=== PATIENT | male | born 1980 | race African-American/Black ===

== ENCOUNTER 2017-12-08 09:02 | Emergency (ER) | payer OTHER ==
[2017-12-08] MEDS ORDERED: diazePAM 2 MG TABLET PO ONE (09:03)
[2017-12-08] MEDS ORDERED: IBUPROFEN 600 MG TABLET (FP) PO ONE ×2 (09:03→09:43)
--- NOTE | 2017-12-08 09:03 | PDOC ---
History of Present Illness - General Chief Complaint: Pain, Acute Stated Complaint: BACK PAIN Time Seen by Provider: 12/08/17 09:03 History Source: Patient Exam Limitations: No Limitations - History of Present Illness Initial Comments: 12/08/17 09:14 Mr. Santo is a 37 yo M with no significant past medical history who presents to the ER with a complaint of back pain Pt states he has a history of chronic back pain His pain worsened last evening Pain is described as an ache, intermittently sharp Rated 7/10, no radiation No fevers, chills cough No shortness of breath No chest pain No trauma, no heavy lifting No prior episodes like this No recent travel, no recent surgery, no cancer dx PMH: denies PSH: denies Meds: denies ALL: NKDA Social: denies drug or cigarette use FH: non contributory GENERAL/CONSTITUTIONAL: No: fever, chills, weakness, loss of appetite. HEAD, EYES, EARS, NOSE AND THROAT: No: change in vision, ear pain, discharge, sore throat, throat swelling. CARDIOVASCULAR: No: chest pain, lightheadedness RESPIRATORY: No: cough, shortness of breath GASTROINTESTINAL: No: nausea, vomiting, diarrhea, abdominal pain GENITOURINARY: No: dysuria, hematuria, frequency, urgency, flank pain. MUSCULOSKELETAL: Yes: right thoracic back pain No: midline back pain, neck pain , joint pain SKIN : No: lesions, pallor, rash or easy bruising. NEUROLOGIC: No: headache, vertigo, paresthesias, weakness ENDOCRINE: No: unexplained weight gain or loss HEMATOLOGIC/LYMPHATIC: No: anemia, easy bleeding, swelling nodes. GENERAL: The patient is in no acute distress. HEAD: Normal EYES: PERRLA, EOMI, sclera anicteric, conjunctiva clear. ENT: Ears normal, nares patent, oropharynx clear without exudates. Moist mucous membranes. NECK: Normal range of motion, supple without midline tenderness LUNGS: Breath sounds equal, clear to auscultation bilaterally. No wheezes, and no crackles. HEART:Regular rate and rhythm, normal S1 and S2 without murmur, rub or gallop. ABDOMEN: Soft, nontender, normoactive bowel sounds. No guarding, no rebound. No masses palpable. EXTREMITIES: Normal range of motion, no edema. NEUROLOGICAL: Cranial nerves II through XII grossly intact. Normal speech. No focal neurological deficits. MUSCULOSKELETAL: Right thoracic back tenderness to palpation, no swelling SKIN: no rash noted 12/08/17 16:47 Past History - Past Medical History Allergies/Adverse Reactions: Allergies Allergy/AdvReac Type Severity Reaction Status Date / Time No Known Allergies Allergy Verified 12/08/17 09:03 Home Medications: Ambulatory Orders Lidocaine 5% Patch [Lidoderm Patch -] 1 patch TP DAILY PRN #30 patch 12/08/17 Methocarbamol [Robaxin -] 500 mg PO TID PRN #21 tablet 12/08/17 Naproxen [Naprosyn -] 500 mg PO BID PRN #14 tablet 12/08/17 - Suicide/Smoking/Psychosocial Hx Smoking History: Never smoked Have you smoked in the past 12 months: No Hx Alcohol Use: No Drug/Substance Use Hx: Yes (SOCIAL) Substance Use Type: Alcohol Medical Decision Making - Medical Decision Making 12/08/17 09:19 Pt presenting with right thoracic back pain DD: Musculoskeletal pain, pneumonia, pleural effusion, pneumothorax, PE unlikely given stable vital signs Pain is thoracic, I do not believe this to be renal colic Will do: Xrays Motrin UA (R/o hematuria) 12/08/17 10:42 Laboratory Tests 12/08/17 09:17 Urine Blood Negative Urine Nitrite Negative Ur Leukocyte Esterase Negative Will discharge to home Will ask pt to follow up with PMD Motrin/robaxin/lidoderm for pain Clinical Impression: musculoskeletal pain, initial presentation 12/08/17 16:46 *DC/Admit/Observation/Transfer Diagnosis at time of Disposition: Musculoskeletal back pain - Discharge Dispostion Disposition: HOME Condition at time of disposition: Stable Decision to Admit order: No - Prescriptions Prescriptions: Lidocaine 5% Patch [Lidoderm Patch -] 1 patch TP DAILY PRN #30 patch PRN Reason: Pain Methocarbamol [Robaxin -] 500 mg PO TID PRN #21 tablet PRN Reason: Pain Naproxen [Naprosyn -] 500 mg PO BID PRN #14 tablet PRN Reason: Pain - Referrals - Patient Instructions Printed Discharge Instructions: DI for Musculoskeletal Pain Additional Instructions: Mr. Santo, Thank you for coming in to the ER today Please take medications as prescribed Please monitor for new symptoms You can return to the ER for any other concerns or complaints Monitor for skin changes/rash. If you notice this, please return to the ER Please follow up with your primary care physician within 1 week - Post Discharge Activity Forms/Work/School Notes: Back to Work
[2017-12-08 09:09] VITALS: BP 135/82; PULSE 60; TEMP 98; BMI 21.1
[2017-12-08] MEDS ORDERED: CYCLOBENZAPRINE HCL 10 MG TABLET (FP) PO ONE (09:21)
[2017-12-08 09:35] LABS: PH,URINE 6.5 (4.5-8); URINE APPEARANCE Clear; URINE BILIRUBIN Negative (NEGATIVE); URINE GLUCOSE (UA) Negative (NEGATIVE); URINE KETONE Trace (NEGATIVE); URINE LEUK ESTERASE Negative (NEGATIVE); URINE NITRITE Negative (NEGATIVE)
[2017-12-08 09:36] LABS: URINE COLOR AMBER; URINE PROTEIN 1+ (NEGATIVE)
[2017-12-08 10:21] LABS: URINE WBC 0-3 (0-2)
[2017-12-08 10:22] LABS: URINE MUCUS FEW
== END 2017-12-08 11:19 | disposition home or self-care (01) ==
LOC: FER 09:02
DX: M54.6 Pain in thoracic spine (principal); G89.29 Other chronic pain
CPT/HCPCS: 71046-TC-FY; 71101-TC-FY; 81003; 81015; 99282-25

== ENCOUNTER 2019-06-19 09:01 | Emergency (ER) | payer OTHER ==
[2019-06-19] MEDS ORDERED: IBUPROFEN 600 MG TABLET (FP) PO ONE ×2 (09:04→09:31)
--- NOTE | 2019-06-19 09:11 | PDOC ---
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 Pt denies pmhx. Pt denies pshx. Pt denies allergies. Pt denies taking any meds at home. Noticed the pain last night after work and after moping. Pt denies swelling. Denies bites. Denies trauma. Pt with pain along the 2nd metacarpal. Pt with wrist pain on the L with flexion and extension. No forearm or elbow pain. No f/c. No redness. No warmth. No limited ROM. No prior injuries. Pt is RHD. Pmhx: denies Pshx: denies All: NKDA Meds: denies social: occasional tobacco Past History - Past Medical History Allergies/Adverse Reactions: Allergies Allergy/AdvReac Type Severity Reaction Status Date / Time No Known Allergies Allergy Verified 06/19/19 09:15 Home Medications: Ambulatory Orders NK [No Known Home Medication] 06/19/19 CVA: No COPD: No - Psycho Social/Smoking Cessation Hx Smoking History: Never smoked Have you smoked in the past 12 months: No Hx Alcohol Use: No Drug/Substance Use Hx: Yes (SOCIAL) Substance Use Type: Alcohol Review of Systems - Review of Systems Able to Perform ROS?: Yes Is the patient limited Chinese proficient: No Constitutional: No: Chills, Fever HEENTM: No: Nose Congestion, Throat Swelling Respiratory: No: Cough, Shortness of Breath Cardiac (ROS): No: Chest Pain, Irregular Heart Rate ABD/GI: No: Diarrhea, Nausea, Vomiting, Abdominal cramping : No: Burning, Dysuria Musculoskeletal: Yes: Joint Pain (L wrist and hand pain) Integumentary: No: Erythema, Rash Neurological: No: Headache, Numbness, Paresthesia, Tingling, Weakness All Other Systems: Reviewed and Negative *Physical Exam - Vital Signs 06/19/19 09:47 Selected Entries 06/19/19 09:02 Temperature 98.1 F Pulse Rate 58 L Respiratory 20 Rate Blood Pressure 124/90 Blood Pressure 101 Mean O2 Sat by Pulse 100 Oximetry (%) Weight 72.575 kg - Physical Exam General Appearance: Yes: Nourished, Appropriately Dressed. No: Apparent Distress HEENT: positive: EOMI, Normal Voice Neck: positive: Supple Respiratory/Chest: positive: Lungs Clear, Normal Breath Sounds. negative: Respiratory Distress Cardiovascular: positive: Regular Rhythm, Regular Rate, S1, S2 Gastrointestinal/Abdominal: positive: Soft. negative: Guarding, Rebound, Tenderness Musculoskeletal: positive: Normal Inspection, Other (L hand pain along the 2nd metacarpal and L wrist ttp along the radial aspect of the wrist, worse with palpation and with full flexion/extension, no pain with supination/pronation of the forearm, no elbow pain, no swelling, no warmth, no trauma, no rash) Extremity: positive: Normal Capillary Refill, Normal Inspection, Other (pulses intact, pain with extremes of ROM). 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 -no redness, swelling -no trauma -will send for xray -motrin -will monitor and reassess 06/19/19 09:46 no acute findings on xray- pending official read 06/19/19 10:03 no fx or acute findings on xray per rads pt stable for dc to home ice 20 min on and 20 min off discussed plan and follow up with ortho answered all questions will give work note to rest the wrist Discharge - Discharge Information Problems reviewed: Yes Clinical Impression/Diagnosis: Wrist pain Condition: Stable Disposition: HOME - Admission No - Follow up/Referral Referrals: Leonidas Bazan MD [Staff Physician] - Eduardo Tiwari MD [Staff Physician] - Patrick Pillai DO [Staff Physician] - - Patient Discharge Instructions Patient Printed Discharge Instructions: DI for Wrist Pain Additional Instructions: Please take ibuprofen or tylenol as needed for pain. Please apply ice to the wrist - 20 min on and 20 min off. Please rest the wrist for the next few days. Please follow up with the orthopedic surgeon if the pain continues. Please return to the ED with any further concerns or complaints. - Post Discharge Activity Work/Back to School Note: Back to Work
[2019-06-19 09:18] VITALS: BMI 21.1
[2019-06-19 09:47] VITALS: BP 124/90; PULSE 58; TEMP 98.1
== END 2019-06-19 10:19 | disposition home or self-care (01) ==
LOC: FER 09:01
DX: M25.532 Pain in left wrist (principal)
CPT/HCPCS: 73110-TC-LT-FY; 73130-TC-LT-FY; 99282-25

== ENCOUNTER 2020-09-26 09:22 | Emergency (ER) | payer OTHER ==
[2020-09-26 09:33] VITALS: BP 125/92; PULSE 62; TEMP 98; BMI 20.9
[2020-09-26] MEDS ORDERED: EMTRICITABINE 200MG/TENOFOVIR 300MG PO ONE (09:45)
[2020-09-26] MEDS ORDERED: TETANUS AND DIPHTHERIA TOXOID 0.5 ML DISP.SYRIN IM ONE ×2 (09:45→10:32)
[2020-09-26] MEDS ORDERED: RALTEGRAVIR POTASSIUM 400 MG TAB PO ONE (09:45)
[2020-09-26] MEDS ORDERED: HEPATITIS B IMMUNE GLOBULIN 5 ML VIAL IM ONE (09:57)
[2020-09-26] MEDS ORDERED: HIV POST EXPOSURE PROPHYLAXIS KIT PO ONE (10:31)
[2020-09-26 10:42] LABS: HEMATOCRIT 44.2 % (35.4-49); HEMOGLOBIN 15.1 GM/dl (11.7-16.9); MCH 32.1 pg (25.7-33.7); MCHC 34.1 g/dl (32.0-35.9); MEAN CELL VOLUME 94.3 fl (80-96); MEAN PLT VOLUME 9.7 fl (7.5-11.1); PLATELET COUNT 122 K/MM3 (134-434); RBC 4.69 M/mm3 (4.00-5.60); RDW 12.3 % (11.9-15.9); WHITE BLOOD COUNT 3.8 K/mm3 (4.0-10.8)
[2020-09-26 10:46] LABS: ADD RBC MORPHOLOGY YES
[2020-09-26 10:56] LABS: ALBUMIN 4.7 g/dl (3.4-5.0); BILIRUBIN,TOTAL 0.8 mg/dl (0.2-1); CALCIUM 9.3 mg/dl (8.5-10); CREATININE 0.8 mg/dl (0.55-1.3); PHOSPHOROUS 3.1 mg/dl (2.5-4.9); POTASSIUM 4.2 mmol/L (3.5-5.1); TOT PROT 7.1 g/dl (6.4-8.2); URIC ACID 4.7 mg/dl (2.6-7.2)
[2020-09-26 11:50] LABS: PLATELET ESTIMATE ADEQUATE
[2020-09-26 13:08] LABS: HIV INTERPRETATION NEGATIVE (NEGATIVE)
== END 2020-09-26 10:55 | disposition home or self-care (01) ==
LOC: FER 09:22
PROC: 3E0234Z Introduction of Serum, Toxoid and Vaccine into Muscle, Percutaneous Approach (ICD-10-PCS; principal; 2020-09-26)
DX: S61.231A Puncture wound without foreign body of left index finger without damage to nail, initial encounter (principal); W46.1XXA Contact with contaminated hypodermic needle, initial encounter
CPT/HCPCS: 36415; 80053; 82465; 82977; 83615; 84100; 84478; 84550; 85025; 86317; 86704; 86706; 86803; 87340; 87389; 99283-25

== ENCOUNTER 2022-04-11 19:32 | Emergency (ER) | payer OTHER ==
[2022-04-11] MEDS ORDERED: FAMOTIDINE 20 MG/50 ML IVPB 50 ML IVPB ONE (19:47)
[2022-04-11] MEDS ORDERED: DEXAMETHASONE LIQUID 0.5 MG/5 ML PO ONE (19:47)
[2022-04-11 19:48] VITALS: BP 141/91; PULSE 87; RESP 16; TEMP 98; BMI 19.2
[2022-04-11] MEDS ORDERED: DEXAMETHASONE SOD PHOSPHATE 10 MG/1 ML VIAL ONE (19:48)
[2022-04-11] MEDS ORDERED: FAMOTIDINE 20 MG TABLET PO ONE (19:51)
[2022-04-11] MEDS ORDERED: FAMOTIDINE 20 MG TABLET ONE (19:51)
== END 2022-04-11 19:55 | disposition home or self-care (01) ==
LOC: FER 19:32
DX: L50.9 Urticaria, unspecified (principal)
CPT/HCPCS: 99283-25

== ENCOUNTER 2022-04-13 09:14 | Emergency (ER) | payer OTHER ==
[2022-04-13 09:33] VITALS: BP 137/93; PULSE 73; RESP 20; TEMP 99.8; BMI 20.3
[2022-04-13] MEDS ORDERED: FAMOTIDINE 20 MG TABLET PO ONE (09:42)
[2022-04-13] MEDS ORDERED: MAG HYDROX/AL HYDROX/SIMETH 30 ML UNIT-DOSE CUP PO ONE (09:42)
[2022-04-13] MEDS ORDERED: MAG HYDROX/AL HYDROX/SIMETH 30 ML UNIT-DOSE CUP ONE (09:44)
[2022-04-13] MEDS ORDERED: FAMOTIDINE 20 MG TABLET ONE (09:44)
== END 2022-04-13 10:37 | disposition home or self-care (01) ==
LOC: FER 09:14
DX: K21.9 Gastro-esophageal reflux disease without esophagitis (principal)
CPT/HCPCS: 87651; 93005; 99283-25

== ENCOUNTER 2022-04-15 14:19 | Emergency (ER) | payer OTHER ==
[2022-04-15 14:36] VITALS: BP 117/79; PULSE 99; RESP 19; TEMP 98.3; BMI 19.6
[2022-04-15] MEDS ORDERED: SODIUM CHLORIDE 1,000 ML IV STA (15:12)
[2022-04-15] MEDS ORDERED: FAMOTIDINE 20 MG/50 ML IVPB 20 MG/50 ML MG IVPB ONE ×2 (15:12→15:38)
== END 2022-04-15 17:10 | disposition home or self-care (01) ==
LOC: JERFT 14:19
PROC: 3E033GC Introduction of Other Therapeutic Substance into Peripheral Vein, Percutaneous Approach (ICD-10-PCS; principal; 2022-04-15)
DX: T78.40XA Allergy, unspecified, initial encounter (principal)
CPT/HCPCS: 99284-25

== ENCOUNTER 2022-06-26 16:22 | Emergency (ER) | payer OTHER ==
[2022-06-26 16:37] VITALS: BP 138/95; PULSE 79; RESP 16; TEMP 98.9; BMI 20.3
[2022-06-26] MEDS ORDERED: IBUPROFEN 600 MG TABLET (FP) PO ONE ×2 (16:43→16:46)
== END 2022-06-26 17:40 | disposition home or self-care (01) ==
LOC: FER 16:22
DX: S29.012A Strain of muscle and tendon of back wall of thorax, initial encounter (principal); S20.219A Contusion of unspecified front wall of thorax, initial encounter; V49.40XA Driver injured in collision with unspecified motor vehicles in traffic accident, initial encounter
CPT/HCPCS: 71046-TC-FY; 72070-TC-FY; 93005; 99284-25

== ENCOUNTER 2023-04-02 06:10 | Day surgery (SDC) | payer OTHER ==
[2023-03-30 11:27] VITALS: BMI 19.9
[2023-04-02] MEDS ORDERED: TRIAMCINOLONE ACET 40MG/1ML VIAL ONE (07:19)
[2023-04-02] MEDS ORDERED: LIDOCAINE HCL 2% (20ML MULTI-DOSE VIAL) ONE (07:19)
[2023-04-02] MEDS ORDERED: BUPIVACAINE HCL/PF 0.5% (5MG/ML) 10 ML VIAL ONE (07:19)
[2023-04-02] MEDS ORDERED: PROPOFOL 40 ML ONE (07:27)
[2023-04-02] MEDS ORDERED: LIDOCAINE HCL/PF 2% SDV 5ML VIAL ONE (07:28)
[2023-04-02] MEDS ORDERED: MIDAZOLAM HCL 2 MG/2 ML SINGLE DOSE VIAL ONE (07:28)
[2023-04-02] MEDS ORDERED: KETOROLAC TROMETHAMINE 30 MG/1 ML VIAL ONE (07:28)
[2023-04-02] MEDS ORDERED: ceFAZolin SODIUM 1 GM VIAL ONE (07:43)
[2023-04-02] MEDS ORDERED: ONDANSETRON 4 MG/2 ML VIAL IVPUSH PRN (09:21)
[2023-04-02] MEDS ORDERED: PROMETHAZINE HCL 25 MG/1 ML VIAL IVPB PRN (09:21)
[2023-04-02] MEDS ORDERED: oxyCODONE HCL 5 MG TABLET PO PRN ×2 (09:21)
[2023-04-02] MEDS ORDERED: ACETAMINOPHEN 1000 MG/100 ML BAG IVPB PRN (09:22)
[2023-04-02] MEDS ORDERED: LACTATED RINGERS SOLUTION 1,000 ML IV SCH (09:30)
[2023-04-02 09:42] VITALS: RESP 20; TEMP 97.1
[2023-04-02 10:16] VITALS: BP 120/86; PULSE 62
== END 2023-04-02 10:45 | disposition home or self-care (01) ==
LOC: FASU 06:10
PROVIDERS: ATTEND Podiatrist
PROC: 0QSN04Z Reposition Right Metatarsal with Internal Fixation Device, Open Approach (ICD-10-PCS; principal; 2023-04-02 07:51)
PROC: 0QSQ04Z Reposition Right Toe Phalanx with Internal Fixation Device, Open Approach (ICD-10-PCS; 2023-04-02 07:51)
DX: M20.11 Hallux valgus (acquired), right foot (principal)
CPT/HCPCS: 28299; C1713; 73630-TC-RT-FY; 88304-TC; 88311-TC

== ENCOUNTER 2023-07-07 16:50 | Emergency (ER) | payer OTHER ==
[2023-07-07 20:11] VITALS: BP 132/76; PULSE 82; RESP 18; TEMP 100.1; BMI 21.4
[2023-07-07] MEDS ORDERED: AZITHROMYCIN 250 MG TABLET PO ONE (20:44)
[2023-07-07] MEDS ORDERED: AZITHROMYCIN 250 MG TABLET ONE (20:50)
== END 2023-07-07 20:59 | disposition home or self-care (01) ==
LOC: FER 16:50
DX: R05.9 Cough, unspecified (principal); R50.9 Fever, unspecified; R63.0 Anorexia; R19.7 Diarrhea, unspecified; R53.81 Other malaise; J20.9 Acute bronchitis, unspecified; Z20.822 Contact with and (suspected) exposure to COVID-19
CPT/HCPCS: 0241U-QW; 71046-TC-FY; 99284-25

== ENCOUNTER 2024-06-19 08:22 | Emergency (ER) | payer OTHER ==
[2024-06-19] MEDS ORDERED: KETOROLAC TROMETHAMINE 15 MG/ML VIAL ONE (08:48)
[2024-06-19] MEDS: KETOROLAC TROMETHAMINE 15 MG/ML VIAL IM ONE (08:51)
[2024-06-19 08:52] VITALS: BP 115/92; PULSE 74; RESP 18; TEMP 97.3
[2024-06-19] MEDS ORDERED: METHOCARBAMOL 500 MG TABLET ONE (10:06)
[2024-06-19] MEDS: METHOCARBAMOL 500 MG TABLET PO ONE (10:09)
== END 2024-06-19 10:10 | disposition home or self-care (01) ==
LOC: FER 08:22
PROC: 3E0133Z Introduction of Anti-inflammatory into Subcutaneous Tissue, Percutaneous Approach (ICD-10-PCS; principal; 2024-06-19)
DX: M54.17 Radiculopathy, lumbosacral region (principal); M54.50 Low back pain, unspecified; X50.1XXA Overexertion from prolonged static or awkward postures, initial encounter
CPT/HCPCS: 99284-25